=== PATIENT | female | born 1935 | race Caucasian/White ===

== ENCOUNTER → 2018-02-27 12:17 | Outpatient (CLI) | payer MEDICARE, BC ==
[2010-02-19 13:02] VITALS: BMI 22.7
== END | disposition home or self-care (01) ==
LOC: D.RAD 12:17
DX: R10.9 Unspecified abdominal pain (principal); R11.0 Nausea; R13.12 Dysphagia, oropharyngeal phase

== ENCOUNTER → 2018-03-07 07:20 | Outpatient (CLI) | payer MEDICARE, BC ==
[2010-02-19 13:02] VITALS: BMI 22.7
[2018-03-07 08:23] LABS: ALBUMIN 3.6 g/dL (3.4-5.0); BILIRUBIN - DIRECT 0.07 mg/dL (0.00-0.30); BILIRUBIN - INDIRECT 0.13 mg/dL (0.00-1.00); BILIRUBIN - TOTAL 0.2 mg/dL (0.2-1.3); PROTEIN - SERUM 7.2 g/dL (6.4-8.2)
== END | disposition home or self-care (01) ==
LOC: D.LAB 07:20 → D.US 08:00 → D.NM 08:30
PROVIDERS: Internal Medicine Gastroenterology
DX: R10.9 Unspecified abdominal pain (principal); R11.0 Nausea; R13.12 Dysphagia, oropharyngeal phase

== ENCOUNTER → 2019-05-15 08:39 | Outpatient (CLI) | payer MEDICARE, BC ==
[2010-02-19 13:02] VITALS: BMI 22.7
== END | disposition home or self-care (01) ==
LOC: D.RAD 08:39
PROVIDERS: ATTEND Internal Medicine Gastroenterology
DX: R13.10 Dysphagia, unspecified (principal)